=== PATIENT | female | born 1935 | race Caucasian/White ===

== ENCOUNTER → 2018-07-15 08:39 | Outpatient (CLI) | payer MEDICARE, OTHER, SELFPAY ==
--- NOTE | 2018-07-15 | DI.MRI.S_ITS ---
PROCEDURE: MR HEAD/BRAIN WO/W CON INDICATIONS: MEMORY LOSS POSTMENOPAUSAL ESTROGEN DEFICIENCY TECHNIQUE: Noncontrast axial T1 spin echo, axial T2 fast spin echo, sagittal and axial FLAIR, coronal T2 fast spin echo, axial gradient echo, axial diffusion and ADC through the brain. After the administration of contrast, axial and coronal T1 spin echo with fat saturation through the brain. COMPARISON: None. FINDINGS: Image quality: Excellent. CSF spaces: Basal cisterns are patent. No extra-axial fluid collections. Ventricles are normal in size and shape. Brain: No midline shift. No intracranial bleeds or masses. No abnormal intracranial enhancement. There is moderate cerebral volume loss for age. There is extensive periventricular white matter chronic small vessel ischemic change. The brainstem appears normal. Diffusion-weighted images demonstrate no acute ischemic insults. There are multiple foci of susceptibility artifacts bilaterally, right greater than left. Normal intravascular flow voids are present. Skull and face: Calvarial marrow is normal in signal. Orbits appear normal. Sinuses: Sinuses and mastoids appear clear. IMPRESSION: 1. No acute intracranial abnormalities. 2. Moderate cerebral volume loss and severe chronic microvascular ischemic changes. 3. Multiple foci of susceptibility artifacts bilaterally, suggesting hemosiderin deposition. The finding may be secondary to amyloid angiopathy. Dictated by: Odalis Warren M.D. on 07/15/2018 at 10:49 Approved by: Odalis Warren M.D. on 07/15/2018 at 17:48
== END ==
PROVIDERS: PCP Nurse Practitioner Family; Visit Provider Nurse Practitioner Family
DX: R41.3 Other amnesia (principal); M81.0 Age-related osteoporosis without current pathological fracture; Z78.0 Asymptomatic menopausal state; E28.39 Other primary ovarian failure
CPT/HCPCS: 70553; 77080; A9579

== ENCOUNTER 2019-11-02 14:56 | Observation (INO) | payer MEDICARE, OTHER, SELFPAY ==
[2019-11-02] VITALS (19 sets, daily range): BP systolic 152–203; BP diastolic 72–101; PULSE 85–152; RESP 16–54; TEMP 36.4–36.9; O2SAT 85–100; BMI 20.1
--- NOTE | 2019-11-02 15:07 | ED.DIZZY ---
HPI - Dizziness General Chief Complaint: Dizziness Stated Complaint: states vestibular neuritis Time Seen by Provider: 11/02/19 15:00 Source: patient and family Mode of arrival: Wheelchair Limitations: no limitations History of Present Illness HPI Narrative: 84-year-old female nonsmoker presents with her for evaluation dizziness with any motion or change in position for the past few days. She has had a few episodes of nausea and vomiting. She denies any focal findings such as blurred vision, trouble speech or extremity numbness, tingling or weakness. She has had no recent injury. She had recently been treated with Keflex for urinary tract infection but stopped when she started becoming dizzy. 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 She states that her right ear felt funny and like there was liquid in it. She denies recent flights, diving, or swimming. She is now significantly week and states she's had a poor appetite. MD complaint: dizziness Onset (ago): day(s) Timing: unsure Description: sense of movement History of similar episodes: No History of trauma: No Severity: moderate Relieving factors: remaining still Exacerbating factors: movement and position Associated symptoms: weakness, nausea and vomiting Related Data Home Medications Medication Instructions Recorded Confirmed CALCIUM CITRATE/VITAMIN D3 2 tab PO BID #0 05/07/12 (Calcitrate + Vit D Caplet) cholecalciferol (vitamin D3) 2,000 unit PO QDAY #0 05/07/12 [Vitamin D3] telmisartan [Micardis] 10 mg PO Q DAY #0 05/07/12 [HOMEOPATHIC SUPPLEME] Q DAY #0 03/14/16 [CO-Q-10] 100 mg Q DAY #0 05/01/16 [COD LIVER OIL] #0 05/01/16 [SUPER K] 1,200 mcg Q DAY #0 05/01/16 ascorbic acid (vitamin C) 1,000 mg PO QDAY #0 05/01/16 multivitamin [Multiple Vitamins] 1 tab PO QDAY #0 05/01/16 zinc acetate [Galzin] 25 mg PO Q DAY #0 05/01/16 Previous Rx's Medication Instructions Recorded atorvastatin [Lipitor] 40 mg PO HS #90 tab 05/01/16 venlafaxine [Effexor XR] 75 mg PO QDAY #90 cap 10/04/16 Allergies Allergy/AdvReac Type Severity Reaction Status Date / Time niacin [NIACIN] Allergy Intermediate NAUSEA, Verified 11/02/19 17:13 ELEVATED LIVER ENZYMES pseudoephedrine Allergy Mild HIVES Verified 11/02/19 17:13 [PSEUDOEPHEDRINE] Sulfa (Sulfonamide Allergy Unknown RASH - Verified 11/02/19 17:13 Antibiotics) UNKNOWN [SULFA (SULFONAMIDE SEVERITY ANTIBIOTICS)] PER PT Review of Systems Constitutional Constitutional: Denies chills, Denies fatigue, Denies fever(s), Denies frequent falls, Denies lethargy and Denies weakness Eyes Eyes: Denies change in vision, Denies eye discharge, Denies irritation and Denies loss of vision Comments: nystagmus ENT Ears, Nose, Mouth, and Throat: Denies change in voice, Reports dizziness, Denies neck pain, Denies sore throat and Denies throat swelling Cardiovascular Cardiovascular: Denies chest pain, Denies irregular heart rhythm, Denies lightheadedness, Denies palpitations, Denies dyspnea, Denies dyspnea on exertion and Denies orthopnea Respiratory Respiratory: Denies cough, Denies dyspnea, Denies dyspnea on exertion and Denies wheezing Gastrointestinal Gastrointestinal: Denies abdominal pain, Denies change in bowel habits, Denies diarrhea, Denies nausea and Denies vomiting Musculoskeletal Musculoskeletal: Denies neck pain and Denies numbness Integumentary/Breasts Skin/Breast: Denies pruritus, Denies erythema, Denies rash and Denies wounds Neurologic Neurologic: Denies behavioral changes, Denies confusion, Reports dizziness, Denies frequent falls, Denies loss of vision, Denies numbness and Denies weakness Psychiatric Psychiatric: Denies anxiety, Denies behavioral changes, Denies confusion, Denies depression, Denies homicidal ideation and Denies suicidal ideation Endocrine Endocrine: Denies fatigue, Denies flushing and Denies palpitations Hematologic/Lymphatic Hematologic/Lymphatic: Denies easy bruising Allergic/Immunologic Allergic/Immunologic: Denies urticaria, Denies throat swelling and Denies wheezing Patient History Surgical History History of hip replacement History of tonsillectomy Status post delivery Status post hysterectomy Family History Father Heart disease Mother Mental health problem Social History Smoking Status: Never smoker Smoking Status: Never smoker alcohol intake frequency: 0-2 drinks per day Substance Use Type: does not use Exam Narrative Exam Narrative: GENERAL: [84] year old patient appears stated age. Well-nourished, well-developed patient, in mild distress. HEAD: Atraumatic. Normocephalic. EYES: Pupils equal round and reactive. Extraocular motions intact, however horizontal nystagmus with fast twitch to the right is noted. No scleral icterus. No injection or drainage. ENT: Nose without bleeding, purulent drainage. Throat without erythema, tonsillar hypertrophy or exudate. Airway patent. NECK: Trachea midline. Non tender CARDIOVASCULAR: Regular rate and rhythm without murmurs, gallops, or rubs. RESPIRATORY: Clear to auscultation. Breath sounds equal bilaterally. No wheezes, rales, or rhonchi. GASTROINTESTINAL: Abdomen soft, non-tender, nondistended. EXTREMITIES: No edema or joint tenderness. BACK: Nontender without deformity or crepitance. No flank tenderness. NEURO: AOx3. SKIN: No rash or erythema of visible areas Initial Vital Signs Initial Vital Signs: Vital Signs Pulse Rate 111 H 11/02/19 15:15 Respiratory Rate 24 11/02/19 15:15 Blood Pressure 180/86 H 11/02/19 15:15 Pulse Oximetry 99 11/02/19 15:15 Scores NIH Stroke Scale Level of Conciousness: Alert, keenly responsive Ask month/age: Answers both questions correctly. Open/close eyes, close hand: Performs both tasks correctly Best gaze horizontal: Normal Visual abernathy: No visual loss Facial palsy: Normal symetrical movement Left arm drift: No drift for full 10 sec Right arm drift: No drift for full 10 sec Left leg drift: No drift for full 5 sec Right leg drift: No drift for full 5 sec Limb ataxia: Absent Sensory on face/arms/legs: Normal, no sensory loss Best language: No aphasia, normal Dysarthria: Normal Extinction or inattention: No abnormality Total NIH Stroke scale score: 0 Course Course Course Narrative: Head impulse test: Loss of fixation with corrective saccade when head turned to the [right] Nystagmus: unidirectional, horizontal with fast twitch to the Right Skew Deviation: grossly absent portions of her exam and story are certainly consistent with a peripheral vertigo however her double vision, trouble with swallowing, and history of at least two prior TIA make it difficult to consider her safe for discharge. Orders Ordered: ED Orders 11/02/19 15:20 Basic Metabolic Panel Stat Complete Blood Count AUTO DIFF Stat Urine Microscopic Stat 11/02/19 15:30 EKG-12 Lead Stat 11/02/19 16:22 CT head/brain wo con Stat 11/02/19 17:18 COVID19 -ED/INPAT/OR/L&D Stat Discontinued Medications Aspirin (Aspirin Chew) 324 mg PO NOW ONE Stop: 11/02/19 16:59 Last Admin: 11/02/19 17:23 Dose: 324 mg Documented by: ADIEL Sodium Chloride (Normal Saline 0.9%) 1,000 mls @ 1,000 mls/hr IV BOLUS ONE Stop: 11/02/19 16:16 Last Infusion: 11/02/19 17:13 Dose: 0 mls/hr Documented by: Admin: 11/02/19 15:44 Dose: 1,000 mls/hr Documented by: JIGAR Meclizine HCl (Antivert) 50 mg PO NOW ONE Stop: 11/02/19 15:18 Last Admin: 11/02/19 15:21 Dose: 50 mg Documented by: JIGAR Reevaluation(s) Reevaluation #1: patient given meclizine, and while consuming has brief choking spell and HR jumps to 155. Repeat EKG ordered, but she had settled down to 106 again by the time of it's completion. Vital Signs Vital signs: Vital Signs - 8 hr 11/02/19 15:15 11/02/19 15:20 11/02/19 15:24 Temperature 98.4 F Pulse Rate 111 H 152 H 122 H Respiratory Rate 24 24 20 Blood Pressure 180/86 H 180/86 H Pulse Oximetry 99 99 11/02/19 15:30 11/02/19 15:33 11/02/19 15:34 Temperature Pulse Rate 134 H 110 H 107 H Respiratory Rate 39 H Blood Pressure 203/101 H 171/77 H Pulse Oximetry 95 95 11/02/19 15:45 11/02/19 16:00 11/02/19 16:15 Temperature Pulse Rate 96 H 98 H 103 H Respiratory Rate 20 38 H 27 H Blood Pressure 165/79 H 157/76 H 171/83 H Pulse Oximetry 99 99 98 11/02/19 16:46 11/02/19 16:47 11/02/19 17:00 Temperature Pulse Rate 98 H 98 H 91 H Respiratory Rate 23 18 40 H Blood Pressure 179/94 H Pulse Oximetry 97 97 99 11/02/19 17:01 11/02/19 17:15 Temperature Pulse Rate 93 H 85 Respiratory Rate 42 H 54 H Blood Pressure 152/72 H 160/74 H Pulse Oximetry 99 100 MDM - Dizziness Lab Data Result diagrams: 11/02/19 15:20 11/02/19 15:20 Labs: Lab Results 11/02/19 11/02/19 11/02/19 Range/Units 15:20 15:20 15:20 WBC 9.6 (4.5-11.0) X10^3/uL RBC 4.79 (4.0-5.2) X10^6/uL Hgb 13.9 (12.0-16.0) g/dL Hct 42.3 (36-46) % MCV 88.3 (80-100) fL MCH 29.1 (26-34) PG MCHC 32.9 (30-36) % RDW 14.0 (11.6-14.8) % Plt Count 178 (150-400) X10^3/uL Neut % (Auto) 83.4 H (50-75) % Lymph % (Auto) 12.3 L (25-40) % Mcculloch % (Auto) 3.7 (3-14) % Eos % (Auto) 0.1 L (2-4) % Baso % (Auto) 0.5 (0-2) % Neut # (Auto) 8000 H (9329-8403) /uL Lymph # (Auto) 1200 (7500-7015) /uL Mcculloch # (Auto) 400 (0-900) /uL Eos # (Auto) 0 (0-450) /uL Baso # (Auto) 100 (0-100) /uL Sodium 140 (137-145) mmol/L Potassium 3.9 (3.4-5.1) mmol/L Chloride 103 (98-107) mmol/L Carbon Dioxide 29 (22-32) mmol/L BUN 14 (7-17) mg/dL Creatinine 0.40 L (0.52-1.04) mg/dL Estimated GFR > 60.0 (>60) mL/min BUN/Creatinine Ratio 35.0 H (6-22) Glucose 121 H (80-110) mg/dL Calcium 10.0 (8.4-10.2) mg/dL Urine RBC 1-5/hpf (0-5/HPF) Urine WBC 0-1/hpf (0-5/HPF) Ur Squamous Epith Cells 1-5 /hpf (0-5/HPF) Amorphous Sediment 1+ Urine Bacteria None seen (None) Ur Culture Indicated? Cult not indicated COVID-19 PCR (Negative) 11/02/19 Range/Units 17:18 WBC (4.5-11.0) X10^3/uL RBC (4.0-5.2) X10^6/uL Hgb (12.0-16.0) g/dL Hct (36-46) % MCV (80-100) fL MCH (26-34) PG MCHC (30-36) % RDW (11.6-14.8) % Plt Count (150-400) X10^3/uL Neut % (Auto) (50-75) % Lymph % (Auto) (25-40) % Mcculloch % (Auto) (3-14) % Eos % (Auto) (2-4) % Baso % (Auto) (0-2) % Neut # (Auto) (3715-7592) /uL Lymph # (Auto) (6324-0021) /uL Mcculloch # (Auto) (0-900) /uL Eos # (Auto) (0-450) /uL Baso # (Auto) (0-100) /uL Sodium (137-145) mmol/L Potassium (3.4-5.1) mmol/L Chloride (98-107) mmol/L Carbon Dioxide (22-32) mmol/L BUN (7-17) mg/dL Creatinine (0.52-1.04) mg/dL Estimated GFR (>60) mL/min BUN/Creatinine Ratio (6-22) Glucose (80-110) mg/dL Calcium (8.4-10.2) mg/dL Urine RBC (0-5/HPF) Urine WBC (0-5/HPF) Ur Squamous Epith Cells (0-5/HPF) Amorphous Sediment Urine Bacteria (None) Ur Culture Indicated? COVID-19 PCR Negative (Negative) Urine Dip Bedside Urine Glucose Negative Bedside Urine Bilirubin - Negative Bedside Urine Ketone +++ 80 Urine Specific Jelm 1.030 Bedside Urine Occult Blood +/- Bedside Urine pH 6.0 Bedside Urine Protein +/- 15 Bedside Urine Urobilinogen - Negative Bedside Urine Nitrite - Negative Bedside Urine Leukocytes - Negative Esterase Imaging Data CT scan - head: Radiologist's Impression: [address] [address] [address] Scan Report Signed Patient: Tod Posey KMR#: [id number] : 7Acct:[id number] Age/Sex: 84 / FDate of Service: 11/02/19 Loc: ED Accession Number: [id number] Procedure: CT head/brain wo con Ordering Provider: Leonardo Goddard D.O. PROCEDURE: CT HEAD/BRAIN WO CON INDICATIONS: dizzy, blurred vision TECHNIQUE: Noncontrast 4.5 mm thick angled axial sections acquired from the foramen magnum to the vertex, with coronal and sagittal reformats. For radiation dose reduction, the following was used: automated exposure control, adjustment of mA and/or kV according to patient size. COMPARISON: [facility], MR, MR HEAD/BRAIN WO/W CON, 07/15/2018, 9:24. FINDINGS: Image quality: Excellent. CSF spaces: Basal cisterns are patent. No extra-axial fluid collections. The ventricles are symmetric in size and shape. Brain: No intracranial bleeds or masses. There is cerebral volume loss for age, with resultant ventricular and sulcal prominence. There are periventricular and deep white matter chronic small vessel ischemic changes. There is intracranial internal carotid artery atherosclerosis. Skull and face: Calvarium and visualized facial bones appear intact, without suspicious lesions. There is a right superior posterior scalp lesion seen, as on series 4, image 33, which is similar to the prior MRI. Sinuses: Visualized sinuses and mastoids are clear. An apparent impacted tooth can be seen along the posterior aspect of the left maxillary sinus. IMPRESSION: No definite intracranial abnormality is seen for age, with note made of brain parenchymal volume loss and chronic small vessel ischemic change. Note is made of age-appropriate brain parenchymal volume loss and chronic small vessel ischemic changes. 1 cm posterior superior scalp lesion, which is similar to the prior. Please correlate with physical examination findings. Dictated by: Devendra Carrillo M.D. on 11/02/2019 at 15:57 Approved by: Devendra Carrillo M.D. on 11/02/2019 at 15:59 ECG Data Interpretation: EKG is sinus tachycardia, rate 106, regular rhythm and free of any signs of ischemia or ectopy. No ST segmental elevation or depression. No T wave inversions Discharge Plan Departure Patient Disposition: Admitted as Observation Clinical Impression: Brain TIA Referrals: Geneva Hearn ARNP [Primary Care Provider] - Admit Date/Time: 11/02/19 17:39 Admit Provider: Polo Balderas
[2019-11-02] MEDS: MECLIZINE HCL 12.5 MG TABLET 50 MG PO (15:21)
[2019-11-02 15:34] LABS: Add Manual Diff / Slide Review NO; Bacteria Urine None Seen; Basophils Absolute Auto 100 /uL (0-100); Basophils Percent Auto 0.5 % (0-2); Eosinophils Absolute Auto 0 /uL (0-450); Eosinophils Percent Auto 0.1 % (2-4); Hematocrit 42.3 % (36-46); Hemoglobin 13.9 g/dL (12.0-16.0); Lymphocytes Absolute Auto 1200 /uL (1100-4500); Lymphocytes Percent Auto 12.3 % (25-40); Mean Corpuscular HGB Conc 32.9 % (30-36); Mean Corpuscular Hemoglobin 29.1 PG (26-34); Mean Corpuscular Volume 88.3 fL (80-100); Monocytes Absolute Auto 400 /uL (0-900); Monocytes Percent Auto 3.7 % (3-14); Neutrophils Absolute Auto 8000 /uL (1500-7000); Neutrophils Percent Auto 83.4 % (50-75); Platelet Count 178 X10^3/uL (150-400); Red Blood Cell Count 4.79 X10^6/uL (4.0-5.2); White Blood Cell Count 9.6 X10^3/uL (4.5-11.0)
[2019-11-02 15:43] LABS: Amorphous Sediment Urine 1+; Culture Indicated Urine Cult Not Indicated; RBC Urine 1-5/HPF (0-5/HPF); Squamous Epithelial Cell Urine 1-5 /HPF (0-5/HPF); WBC Urine 0-1/HPF (0-5/HPF)
[2019-11-02 15:44] LABS: Blood Urea Nitrogen 14 mg/dL (7-17); Carbon Dioxide 29 mmol/L (22-32); Chloride 103 mmol/L (98-107); Estimated Glomerular Filt Rate > 60.0 mL/min (>60); Glucose 121 mg/dL (80-110); HEMOLYSIS < 15 (0-50); Potassium 3.9 mmol/L (3.4-5.1); Sodium 140 mmol/L (137-145)
[2019-11-02] MEDS: SODIUM CHLORIDE 0.9% 1,000 ML 1000 ML IV (15:44)
--- NOTE | 2019-11-02 16:22 | DI.CT.S_ITS ---
PROCEDURE: CT HEAD/BRAIN WO CON INDICATIONS: dizzy, blurred vision TECHNIQUE: Noncontrast 4.5 mm thick angled axial sections acquired from the foramen magnum to the vertex, with coronal and sagittal reformats. For radiation dose reduction, the following was used: automated exposure control, adjustment of mA and/or kV according to patient size. COMPARISON: [facility], MR, MR HEAD/BRAIN WO/W CON, 07/15/2018, 9:24. FINDINGS: Image quality: Excellent. CSF spaces: Basal cisterns are patent. No extra-axial fluid collections. The ventricles are symmetric in size and shape. Brain: No intracranial bleeds or masses. There is cerebral volume loss for age, with resultant ventricular and sulcal prominence. There are periventricular and deep white matter chronic small vessel ischemic changes. There is intracranial internal carotid artery atherosclerosis. Skull and face: Calvarium and visualized facial bones appear intact, without suspicious lesions. There is a right superior posterior scalp lesion seen, as on series 4, image 33, which is similar to the prior MRI. Sinuses: Visualized sinuses and mastoids are clear. An apparent impacted tooth can be seen along the posterior aspect of the left maxillary sinus. IMPRESSION: No definite intracranial abnormality is seen for age, with note made of brain parenchymal volume loss and chronic small vessel ischemic change. Note is made of age-appropriate brain parenchymal volume loss and chronic small vessel ischemic changes. 1 cm posterior superior scalp lesion, which is similar to the prior. Please correlate with physical examination findings. Dictated by: Devendra Carrillo M.D. on 11/02/2019 at 15:57 Approved by: Devendra Carrillo M.D. on 11/02/2019 at 15:59
[2019-11-02] MEDS: ASPIRIN 81 MG CHEW TAB 324 MG PO (17:23)
[2019-11-02 17:55] LABS: COVID19 -Nasal RAPID Negative (Negative)
--- NOTE | 2019-11-02 20:41 | P.HP_ITS ---
History of Present Illness History of Present Illness Date Patient Seen: 11/02/19 Time Patient Seen: 20:00 Chief complaint: states vestibular neuritis Narrative: Filiberto Posey Is an 84-year-old female resident of [place] who presented with a 2-3 day history of dizziness and dehydration. 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 She was seen by an oral surgeon who removed a small portion of the upper and lower tongue border and told her that he did not remove all the borders. She has since been referred to a Dr. Castillo Head and Neck surgery ([phone]) at [facility] for consultation to do a Mohs procedure on her tongue. The patient states that prior to having the surgery she her tongue was quite painful and she has not been eating or drinking much due to the pain. 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 She does endorse having a headache, nausea as well as vomiting and frequent urination, She denies shortness of breath, denies chest pain, diarrhea or constipation. She denies a history of diabetes in her immediate family, but had a grandparent who was diabetic. She currently has diagnosis is of hypertension, hyperlipidemia and anxiety. In the ED, CT was negative for any acute intercranial process, they did report a impacted tooth. Patient is afebrile, blood pressure 169/87, heart rate 85, respiratory rate 16, is a pain level of 5, oxygen saturation 99% on room air, she weighs 49.8 kg with a BMI of 20.1. CBC is within normal limits, she has a platelet count of 178 however for some reason her chart is flagged with being thrombocytopenic, chemistries largely within normal limits, glucose 121 with an A1c of 6.3%, urinalysis is negative for UTI and she is COVID-19 negative. Patient History Medical History (Updated 11/02/19 @ 21:02 by JESSA Llamas) Essential hypertension (Chronic 12/28/15) History of thrombocytopenia (Acute) Hyperlipidemia (Chronic) Surgical History History of hip replacement History of tonsillectomy Status post delivery Status post hysterectomy Family & Social History Family History Father Heart disease Mother Mental health problem Social History: household members spouse Prior Living Arrangements House Safety & Behavioral: Been Physically Hurt or No Threatened By a Person Suicidal Ideation Description None Suicide Plan Description No Plan Tobacco & Substance use: Smoking Status Never smoker alcohol intake frequency 0-2 drinks per day Substance Use Type does not use Meds Home Medications and Allergies Home Medications Medication Instructions Recorded Confirmed Type CALCIUM CITRATE/VITAMIN D3 2 tab PO BID #0 05/07/12 History (Calcitrate + Vit D Caplet) cholecalciferol (vitamin D3) 2,000 mcg PO DAILY #0 05/07/12 11/02/19 History [Vitamin D3] telmisartan [Micardis] 10 mg PO Q DAY #0 05/07/12 11/02/19 History [HOMEOPATHIC SUPPLEME] Q DAY #0 03/14/16 History Galzin 25 mg PO Q DAY #0 05/01/16 History [CO-Q-10] 100 mg PO BID #0 05/01/16 11/02/19 History [COD LIVER OIL] 1 tsp PO DAILY #0 05/01/16 11/02/19 History [SUPER K] 2,600 mcg PO DAILY #0 05/01/16 11/02/19 History ascorbic acid (vitamin C) 1,000 mg PO QDAY #0 05/01/16 11/02/19 History multivitamin [Multiple Vitamins] 1 tab PO BID #0 05/01/16 11/02/19 History venlafaxine [Effexor XR] 75 mg PO QDAY #90 cap 10/04/16 11/02/19 Rx acetylcarnitine 500 mg PO DAILY 11/02/19 11/02/19 History alendronate 70 mg PO WEEKLY 11/02/19 11/02/19 History aspirin 81 mg PO DAILY 11/02/19 11/02/19 History atorvastatin 30 mg PO BEDTIME 11/02/19 11/02/19 History bromelains 500 mg PO BID 11/02/19 11/02/19 History calcium carbonate 500 mg PO BID 11/02/19 11/02/19 History lycopene 15 mg PO BID 11/02/19 11/02/19 History magnesium oxide 250 mg PO BID 11/02/19 11/02/19 History Allergies Allergy/AdvReac Type Severity Reaction Status Date / Time niacin [NIACIN] Allergy Intermediate NAUSEA, Verified 11/02/19 17:13 ELEVATED LIVER ENZYMES pseudoephedrine Allergy Mild HIVES Verified 11/02/19 17:13 [PSEUDOEPHEDRINE] Sulfa (Sulfonamide Allergy Unknown RASH - Verified 11/02/19 17:13 Antibiotics) UNKNOWN [SULFA (SULFONAMIDE SEVERITY ANTIBIOTICS)] PER PT Review of Systems Review of Systems ROS: Yes All systems reviewed with the patient and are negative except as otherwise documented Exam Vital Signs (past 8 hours): - 11/02/19 15:15 11/02/19 15:20 11/02/19 15:24 Temperature 98.4 F Pulse Rate 111 H 152 H 122 H Respiratory Rate 24 24 20 Blood Pressure 180/86 H 180/86 H Pulse Oximetry 99 99 11/02/19 15:30 11/02/19 15:33 11/02/19 15:34 Temperature Pulse Rate 134 H 110 H 107 H Respiratory Rate 39 H Blood Pressure 203/101 H 171/77 H Pulse Oximetry 95 95 11/02/19 15:45 11/02/19 16:00 11/02/19 16:15 Temperature Pulse Rate 96 H 98 H 103 H Respiratory Rate 20 38 H 27 H Blood Pressure 165/79 H 157/76 H 171/83 H Pulse Oximetry 99 99 98 11/02/19 16:46 11/02/19 16:47 11/02/19 17:00 Temperature Pulse Rate 98 H 98 H 91 H Respiratory Rate 23 18 40 H Blood Pressure 179/94 H Pulse Oximetry 97 97 99 11/02/19 17:01 11/02/19 17:15 11/02/19 17:30 Temperature Pulse Rate 93 H 85 99 H Respiratory Rate 42 H 54 H 32 H Blood Pressure 152/72 H 160/74 H 170/86 H Pulse Oximetry 99 100 99 11/02/19 17:45 11/02/19 18:00 11/02/19 18:01 Temperature Pulse Rate 95 H 92 H 94 H Respiratory Rate 32 H 29 H Blood Pressure 168/84 H 171/81 H Pulse Oximetry 99 85 L 96 11/02/19 18:15 Temperature 97.5 F L Pulse Rate 85 Respiratory Rate 16 Blood Pressure 169/87 H Pulse Oximetry 99 Oxygen Delivery Method Room Air Oxygen Flow Rate 0 Narrative Exam Narrative: Gen: Alert, oriented, thin 84 y.o. female, NAD HEENT: normocephalic, atraumatic, conjunctiva clear, sclera non-icteric, has a pale white lesion on the left upper and lower tongue border, oral mucosa pink, but dry Neck: supple, full ROM, no JVD, trachea is midline Resp: Lungs CTA, non-labored breathing CV: RRR, no murmur or rubs Abd: soft, non-tender, normoactive BTs Skin: no lesions or rashes, dry and intact Neuro: Alert and oriented X 4 w/no focal deficits. Speech with a slight lisp, but coherent. Extremities: moves all 4 extremities, is ambulatory, negative Collette?s sign Psyche: normal mood and affect. Objective Labs Result Diagrams: 11/02/19 15:20 11/02/19 15:20 Labs: Laboratory Results - last 24 hr 11/02/19 11/02/19 11/02/19 15:20 15:20 15:20 WBC 9.6 RBC 4.79 Hgb 13.9 Hct 42.3 MCV 88.3 MCH 29.1 MCHC 32.9 RDW 14.0 Plt Count 178 Neut % (Auto) 83.4 H Lymph % (Auto) 12.3 L [place] % (Auto) 3.7 Eos % (Auto) 0.1 L Baso % (Auto) 0.5 Neut # (Auto) 8000 H Lymph # (Auto) 1200 [place] # (Auto) 400 Eos # (Auto) 0 Baso # (Auto) 100 Sodium 140 Potassium 3.9 Chloride 103 Carbon Dioxide 29 BUN 14 Creatinine 0.40 L Estimated GFR > 60.0 BUN/Creatinine Ratio 35.0 H Glucose 121 H Calcium 10.0 Urine RBC 1-5/hpf Urine WBC 0-1/hpf Ur Squamous Epith Cells 1-5 /hpf Amorphous Sediment 1+ Urine Bacteria None seen Ur Culture Indicated? Cult not indicated COVID-19 PCR 11/02/19 17:18 WBC RBC Hgb Hct MCV MCH MCHC RDW Plt Count Neut % (Auto) Lymph % (Auto) [place] % (Auto) Eos % (Auto) Baso % (Auto) Neut # (Auto) Lymph # (Auto) [place] # (Auto) Eos # (Auto) Baso # (Auto) Sodium Potassium Chloride Carbon Dioxide BUN Creatinine Estimated GFR BUN/Creatinine Ratio Glucose Calcium Urine RBC Urine WBC Ur Squamous Epith Cells Amorphous Sediment Urine Bacteria Ur Culture Indicated? COVID-19 PCR Negative Assessment & Plan Assessment & Plan narrative: Filiberto Posey will be observed overnight for further evaluation of a TIA vs nystagmous associated with an acute vestibular neuritis. Visual nystagmous, acute, present on admission -DDx includes TIA given reported history of a CVA -MRI of the head/stroke and echo on 11/02. -Speech and swallow eval, may be confounded with current disorder of her tongue -PT/OT -tele Essential hypertension, not well controlled, present on admission -Normally takes micardis, which will be continued -pending results of echo and cardiac monitoring, may add a beta-francine Hyperlipidemia, chronic -fasting lipid panel in the am -Atorvastatin increased from 30 mg to 40 mg po at bedtime New dx of diabetes type 2 with an A1c of 6.3 -will intiate [facility] glucose checks -diabetic education, suspect she will be diet controlled Tongue cancer/lesion -She was referred to Dr. Xavier Castillo [facility] for a Mohs procedure and was to go in for consultation tomorrow -This appears to mildly affect her speech History of thrombocytopenia, appears to be resolved History of CVA in 2016 -Requested records from her PCP VTE prophylaxis: Wells risk score: 1 Enoxaparin 30 mg subQ daily Consults: none Patient is observation status as her stay is not likely to exceed 2 midnights. FEN: NS at 75 ml/hour X 1 liter ,vegan heart healthy diet, BMP and magnesium in the am. Dispo: unknown at this time Code Status: Full code as discussed with patient Scores Otis' Criteria for PE Clinical signs and symptoms of DVT: No PE is #1 Dx or equally likely: No Heart rate > 100: No Immobilization at least 3 days or surg in previous 4 weeks: No History of PE or DVT: No Hemoptysis: No Malignancy w/Treatment within 6 months or palliative: Yes Wells' PE Score total: 1
[2019-11-02 20:49] LABS: Hemoglobin A1C% w Est Avg Glu 6.3 % (4.0-6.0)
[2019-11-02] MEDS: ATORVASTATIN 20 MG TABLET 40 MG PO (21:11)
[2019-11-02] MEDS: SODIUM CHLORIDE 0.9% 1,000 ML 75 ML IV (22:25)
[2019-11-03 00:45] VITALS: BP 144/87; PULSE 85; RESP 16; TEMP 36.7; O2SAT 97
[2019-11-03 05:31] VITALS: BP 159/70; PULSE 98; RESP 16; TEMP 37.1; O2SAT 97
[2019-11-03 06:27] LABS: Add Manual Diff / Slide Review NO; Basophils Absolute Auto 0 /uL (0-100); Basophils Percent Auto 0.3 % (0-2); Eosinophils Absolute Auto 0 /uL (0-450); Eosinophils Percent Auto 0.6 % (2-4); Hematocrit 36.5 % (36-46); Hemoglobin 12.2 g/dL (12.0-16.0); Lymphocytes Absolute Auto 1900 /uL (1100-4500); Lymphocytes Percent Auto 24.2 % (25-40); Mean Corpuscular HGB Conc 33.5 % (30-36); Mean Corpuscular Hemoglobin 29.4 PG (26-34); Mean Corpuscular Volume 87.8 fL (80-100); Monocytes Absolute Auto 700 /uL (0-900); Monocytes Percent Auto 8.4 % (3-14); Neutrophils Absolute Auto 5300 /uL (1500-7000); Neutrophils Percent Auto 66.5 % (50-75); Platelet Count 154 X10^3/uL (150-400); Red Blood Cell Count 4.16 X10^6/uL (4.0-5.2); Red Cell Distribution Width 13.6 % (11.6-14.8)
[2019-11-03 06:35] LABS: BUN Creatinine Ratio 31.4 (6-22); Blood Urea Nitrogen 11 mg/dL (7-17); Calcium 8.9 mg/dL (8.4-10.2); Carbon Dioxide 27 mmol/L (22-32); Chloride 105 mmol/L (98-107); Cholesterol 150 mg/dL (140-199); Estimated Glomerular Filt Rate > 60.0 mL/min (>60); Glucose 89 mg/dL (80-110); HDL Cholesterol 48 mg/dL (40-60); HEMOLYSIS < 15 (0-50); LDL Cholesterol Calculated 87 mg/dL (<100); Potassium 3.3 mmol/L (3.4-5.1); Sodium 138 mmol/L (137-145); Triglycerides 73 mg/dL (35-150)
[2019-11-03 08:00] VITALS: BP 138/75; PULSE 90; RESP 15; TEMP 36.4; O2SAT 97
--- NOTE | 2019-11-03 08:26 | DI.MRI.S_ITS ---
PROCEDURE: MR STROKE Pre- and post-contrast brain MRI, non-contrast brain MR angiogram, pre- and postcontrast neck MR angiogram INDICATIONS: Nystagmous TECHNIQUE: Brain: Noncontrast axial T1 spin echo, axial T2 fast spin echo, sagittal and axial FLAIR, coronal T2 fast spin echo, axial gradient echo, axial diffusion and ADC through the brain. After the administration of contrast, axial 3D VIBE of the cranial vasculature and brain. Brain MRA: Non-contrast 3-D time of flight MR angiogram, with multiple aotzcbo-ymkmihlkd-zvcixzgeit (MIP) reformats performed. Neck MRA: Axial and sagittal TruFISP through the neck. Coronal dynamic MR angiogram during administration of contrast in the arterial and venous phases, with 3-dimenstional lgneerw-npjjhiudh-vijzketdqy (MIP) reformats constructed from subtraction images. COMPARISON: None. FINDINGS: Image quality: Excellent. BRAIN: CSF spaces: Ventricles are normal in size and shape. Basal cisterns are patent. No extra-axial fluid collections. Brain: No intracranial bleeds or mass effects. Calderon-white matter interface is normal. Diffusion weighted images show no acute ischemic insults. Brainstem appears normal. Normal intravascular flow voids are present. No abnormal intracranial enhancement. There are scattered areas of blooming artifact seen on the gradient echo pulse sequence suggestive of chronic calcifications or blood products. Skull and face: Calvarial marrow signal is normal. Orbits appear normal. Sinuses: Sinuses and mastoids are clear. BRAIN MR ANGIOGRAM: Anterior circulation: Intracranial internal carotid arteries are normal in size and enhancement. The right A1 segment is not seen. The left A1 segment supplies both anterior cerebral arteries. The flow within the paired anterior cerebral arteries is normal and symmetric. There is mild asymmetric decreased flow seen within the distal right M1 segment although no definite occlusion identified on the source images. No stenoses, occlusions, or aneurysms. Posterior circulation: Dominant right vertebral artery is seen. The distal left V4 segment is atretic/absent Basilar artery appears within normal limits. The flow within the posterior cerebral arteries is normal and symmetric. No stenoses, occlusions, or aneurysms. NECK MR ANGIOGRAM: Carotids: Great vessels demonstrate a conventional anatomy as they arise from the aortic arch. The origins of the common carotid arteries appear patent. The calibers and courses of both common carotid arteries are normal. Mild 20% narrowing of the proximal right ICA. The left ICA appears grossly patent Posterior circulation: The origins of the vertebral arteries appear patent. More superior portions of both vertebral arteries demonstrate normal course and caliber, and join to form a normal appearing basilar artery. Miscellaneous: Subclavian arteries appear patent. Pre-contrast images through the neck show no soft tissue abnormalities. IMPRESSION: BRAIN MRI: No evidence of acute ischemia. Scattered chronic microcalcifications/blood products seen on the gradient echo pulse sequence, non-specific etiology. Diffuse small white matter changes, probably represent chronic microvascular ischemic disease, versus statistically less likely demyelination or other infectious, inflammatory, neurodegenerative etiology, technically nonspecific. BRAIN MR ANGIOGRAM: No definite focal stenosis or occlusion. Possible slight asymmetric decreased flow in the distal right M1 segment. NECK MR ANGIOGRAM: No hemodynamically significant ICA stenosis identified. Dictated by: Jose Castellon M.D. on 11/03/2019 at 11:48 Approved by: Jose Castellon M.D. on 11/03/2019 at 12:04
[2019-11-03] MEDS: ONDANSETRON 4 MG/2 ML INJ IV (08:48)
[2019-11-03] MEDS: ASPIRIN EC 81 MG TABLET PO (08:48)
[2019-11-03] MEDS: VENLAFAXINE ER 75 MG CAP PO (08:49)
[2019-11-03] MEDS: TELMISARTAN 20 MG TABLET 10 MG PO (08:50)
[2019-11-03] MEDS: ENOXAPARIN 30 MG/0.3 ML SYRINGE SUBCUT (08:57)
[2019-11-03] MEDS: ACETAMINOPHEN 325 MG TABLET 650 MG PO (09:00)
--- NOTE | 2019-11-03 10:38 | PC.NURSE ---
Day shift: Pt off unit for MRI at approx 1035. Off tele also for MRI.
--- NOTE | 2019-11-03 11:39 | PT.IIE ---
Surgical History (Last Reviewed 11/02/19 @ 15:57 by Leonardo Goddard DO) History of hip replacement History of tonsillectomy Status post delivery Status post hysterectomy Medical History (Last Updated 11/03/19 @ 06:43 by JESSA Llamas) Essential hypertension (Chronic 12/28/15) History of stroke (12/28/15) History of thrombocytopenia (Acute) Hyperlipidemia (Chronic) Physical Therapy Inpatient Evaluation/Re-Eval M1 PT/OT-IP Prior Functional Status Start: 11/03/19 08:59 Freq: NEEDED Status: Active Protocol: Document 11/03/19 10:59 AW (Rec: 11/03/19 11:38 AW [email or web address]) Medical Review Prior Functional Status Medical History Reviewed Yes Communication Pt is being treated for 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 Speech content is appropriate. Pt has mild difficulty with s sounds due to recent tongue surgery. Mobility and Gait Pt is typically independent with all mobilty without AD and without meaningful limit. She admits being unsteady on uneven terrain at baseline. Activities of Daily Living and IADL's Independent with all I/ADL's Social History Household Members spouse Living Arrangements House Number of Floors (Floors) One Floor Number of Stairs To Enter/Railing? 3 JOSSIE with right rail ascending. Home Environment High Toilet,Walk in Shower Home Equipment Straight Cane,Shower Seat without Backrest,Grab Bars In Shower Employment Status Retired Additional Social History Comment Pt lives with her spouse, Foster, on [address]. She has a son, Jaxson, who is a PT and lives in [place]. In addition to equipment listed above, pt has and occasionally uses bilateral trekking poles for uneven terrain. M2 PT-IP Current Condition Start: 11/03/19 08:59 Freq: NEEDED Status: Active Protocol: Document 11/03/19 10:59 AW (Rec: 11/03/19 11:38 AW [email or web address]) Physical Therapy Current Condition Current Condition Evaluation Date 11/03/19 Treatment Diagnosis dizziness, TIA vs vestibular neuritis, impaired balance, difficulty walking Onset Date a few days ago M3 PT-IP Subjective Start: 11/03/19 08:59 Freq: NEEDED Status: Active Protocol: Document 11/03/19 10:59 AW (Rec: 11/03/19 11:38 AW [email or web address]) Subjective Physical Therapy Visit Type Type Initial Evaluation Visit Start Time 09:36 Visit Stop Time 10:26 Total Visit Minutes 50 Physical Therapy Visit Comments Patient Comments When the dizziness comes, it' s like a wave or a sinking feeling. Patient Goals Pt would like to reduce dizziness and return to regular activity Therapy Pain Assessment Pain When Pain Assessed At Rest Pain Present Pain Present Pain Reported Location Occipital Intensity 3 Scale Used occipital and frontal Pain Management Techniques Apply Cold,Modification of Treatment M4 PT-IP Mobility and Gait Start: 11/03/19 08:59 Freq: NEEDED Status: Active Protocol: Document 11/03/19 10:59 AW (Rec: 11/03/19 11:38 AW [email or web address]) PT-Bed Mobility Assessment Supine to Sit Supine to Sit Minimal Assistance,1 Person Assistance Scooting Scooting to Edge of Bed Standby Assistance PT-Transfer Assessment Sit to and From Stand Sit to and from Stand Contact Guard Assistance,1 Person Assistance Equipment Transfer Assistive Device None,Gait Belt,Front Wheeled Walker Orthotic/Prosthetic Devices or Brace: No Transfers Transfer Destination Chair,Toilet,Wheelchair Transfer Technique pt ambulated with and w/o FWW Transfer Ability Level of Assist Standby Assistance,Contact Guard Assistance Comments Mobility Comments Pt was reclined in the bed as PT arrived with room darkened due to 3/10 headache pain. Pt experiences one wave of dizziness lasting <2 minutes while talking to therapist. Pt agreed to mobilize and completed supine to sit from flat bed with min A x 1 for assist to sit up due to fear of dizziness. Pt reported dizzy spell during occulomotor assessment which abated within a minute. Pt stood from the bed with unsteadiness, reaching for therapist's arm to steady herself. She ambulated around the room and into the rayo for a total of 50 feet without AD, requiring CGA/ANIMAL TRAINER SUPERVISOR due to unsteadiness and incoordination. Pt returned to the room and transferred to the chair CGA. MRI transport arrived to notify pt of imminent departure. Pt requested to use the toilet before leaving. Using FWW, pt ambulated to the toilet, transferred to and from, and ambulated to the wheelchair using FWW SBA. Steadiness was improved with use of FWW. Pt was positioned on the wheelchair with call light in reach while awaiting transport. Gait Assessment Gait Gait Assistance Required: Standby Assistance,Contact Guard Assist Distance (Feet) 50 Assistive Devices Assistive Device None,Gait Belt,Front Wheeled Walker Orthotic/Prosthetic Devices or Brace: No Gait Deviations General Gait Pattern Ataxic,Decreased Stride Length ,Decreased Feet Clearance, Flexed Trunk,Lateral Trunk Lean,Wide Based Gait Factors Limiting Gait Function Factors Limiting Gait Function Decreased Activity Tolerance, Incoordination,Pain,Poor Balance,Poor Safety Awareness Comments Gait Comments Pt ambulated in the room and briefly in the rayo for a total of 50 feet without AD, requiring CGA. Pt reached frequently for furniture and railing in the hallway. Lateral lean in ipsilateral stance was significant. Gait in the room with FWW showed improved stability and required only SBA. Discussed recommendation for FWW with pt who states she will be able to procure one from a [employer] program on [address]. Stair Climbing Assessment Comments Stair Climbing Comments Not assessed. PT-Balance Assessment Sitting Balance and Reactions Static Sitting Balance Ability Good Dynamic Sitting Balance Ability Good Standing Balance and Reactions Static Standing Balance Ability Fair Dynamic Standing Balance Ability Poor Balance Tests Single Limb Standing 1 sec BLE Romberg assist to get in position Tandem Standing unable M5 PT-IP Objective Assessments Start: 11/03/19 08:59 Freq: NEEDED Status: Active Protocol: Document 11/03/19 10:59 AW (Rec: 11/03/19 11:38 AW [email or web address]) Orientation Orientation/Cognition Level of Alertness Alert Orientation Name Language Function Ability No Deficits Noted Safety Awareness Understands Safety Issues Memory Description No Deficits Noted Gross Range of Motion Upper Extremity ROM Assessment Within Functional Limits Lower Extremity ROM Assessment Within Functional Limits Strength Upper Extremity Strength Assessment Within Functional Limits Lower Extremity Strength Assessment Within Functional Limits Comments Strength Comments No unilateral deficit on exam Coordination Assessment Gross Coordination Gross Coordination Impaired Assessment Finger to Nose Test Normal Performance Coordination Comments No deficits in BLE on exam, but coordination functionally in gait is poor. Sensation Assessment Sensation Gross Sensation WNL Muscle Tone Muscle Tone WNL Yes Comments Muscle Tone Comments Negative clonus at bilateral ankles Other Assessments Other Other Assessments Smooth pursuits and saccades are abnormal on occulomotor exam. Positive right-beating nystagmus at rest and gaze- evoked. VOR is impaired on head thrust. Symptoms are not consistent with BPPV so pt was not assessed with Josefa Rayo Hagerman position. M6 PT-IP Treatment Start: 11/03/19 08:59 Freq: NEEDED Status: Active Protocol: Document 11/03/19 10:59 AW (Rec: 11/03/19 11:38 AW [email or web address]) Physical Therapy Treatment Education Education Provided Precautions,Safety Other Treatments Other Treatment Performed Provided simple gaze stabilization exercise for pt with horizontal and vertical head turns. M7 PT-IP Assessment and Plan Start: 11/03/19 08:59 Freq: NEEDED Status: Active Protocol: Document 11/03/19 10:59 AW (Rec: 11/03/19 11:38 AW [email or web address]) PT Summary Assessment and Plan Potential Rehabilitation Potential Good Status of Condition at Evaluation Evolving Summary Impairments Pain,Balance,Coordination,Bed Mobility,Transfers,Gait Assessment Summary Filiberto is an 84 yo woman with recent history of oral surgery for tongue cancer and recent UTI (pt did not finish course of antibiotics). She was admitted with complaints of dizziness, double vision, headache, and nausea/vomiting. At baseline, pt is independent in all regards. On evaluation, pt has impaired smooth pursuits, abnormal saccades, right beating nystagmus (resting and gaze- evoked), and impaired vestibulo-occular reflex which are contributing to unsteady, poorly-coordinated gait. MRI is pending at time of evaluation. Pt's steadiness is improved with use of FWW. PT discussed recommendation of FWW with pt who agrees and states she can borrow one from an equipment loan program on [address]. Pt will likely be safe to discharge to home with assist for mobility, use of FWW as needed, and referral to outpatient vestibular PT. Goals Bed Mobility Goal Independent Transfer Goal Independent Gait Goal Independent,Front Wheel Walker Gait Distance 200 Other Goals - improve gait to 200 feet without AD IND - up/down 3 steps with R rail IND Frequency of Treatment Frequency Of Treatment Once a Day Treatment Plan Physical Therapy Treatment Plan Bed Mobility Training,Transfer Training,Gait Training, Therapeutic Exercise,Balance Retraining,Discharge Planning, Hot or Cold Pack,Neuromuscular Re-ed,Coordination Retraining Other Recommendations and Next Treatment gaze stability, gait training, Focus balance activities Recommendations To Nursing Amount of Assist Needed 1 Person Assist Discharge Recommendations PT Discharge Recommendations Home with Assistance, Outpatient PT Other Discharge Recommendations vestibular PT Transportation Needs at Discharge Private Vehicle
[2019-11-03 11:46] VITALS: BP 127/76; PULSE 96; RESP 16; TEMP 36.8; O2SAT 97
--- NOTE | 2019-11-03 13:29 | PM.DS.1 ---
History of Present Illness History of Present Illness Date Patient Seen: 11/03/19 Time Patient Seen: 13:29 Chief complaint: states vestibular neuritis Narrative: Filiberto Posey Is an 84-year-old female resident of [place] who presented with a 2-3 day history of dizziness and dehydration. 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 She was seen by an oral surgeon who removed a small portion of the upper and lower tongue border and told her that he did not remove all the borders. She has since been referred to a Dr. Castillo Head and Neck surgery ([phone]) at [facility] for consultation to do a Mohs procedure on her tongue. The patient states that prior to having the surgery she her tongue was quite painful and she has not been eating or drinking much due to the pain. 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 She does endorse having a headache, nausea as well as vomiting and frequent urination, She denies shortness of breath, denies chest pain, diarrhea or constipation. She denies a history of diabetes in her immediate family, but had a grandparent who was diabetic. She currently has diagnosis is of hypertension, hyperlipidemia and anxiety. In the ED, CT was negative for any acute intercranial process, they did report a impacted tooth. Patient is afebrile, blood pressure 169/87, heart rate 85, respiratory rate 16, is a pain level of 5, oxygen saturation 99% on room air, she weighs 49.8 kg with a BMI of 20.1. CBC is within normal limits, she has a platelet count of 178 however for some reason her chart is flagged with being thrombocytopenic, chemistries largely within normal limits, glucose 121 with an A1c of 6.3%, urinalysis is negative for UTI and she is COVID-19 negative. Discharge Providers Provider Date of admission: 11/02/19 17:39 Discharge Date: 11/03/19 Primary care physician: JESSA Davis Consults: 11/02/19 20:31 Consult to Occupational Therapy Evaluate & Treat Comment: Physician Instructions: Evaluate and treat Consult to Physical Therapy Evaluate & Treat Comment: Physician Instructions: Evaluate and Treat Consult to Speech Therapy Evaluate & Treat Comment: Recent tongue surgery, may affect swallow eval Physician Instructions: Evaluate and treat Discharge provider: Polo Balderas DO Summary Hospital Course Discharge Diagnosis: vestibular neuritis, acute, present on admission Essential hypertension, not well controlled, present on admission Hyperlipidemia, chronic prediabetes Tongue cancer/lesion, stable History of thrombocytopenia History of CVA in 2016 Hospital Course: This is an 84 year old female with a PMH of prior CVA who presented with dizziness with minimal positional change. She underwent an MRI which did not show any acute infarcts the following morning given some atypical exam findings noted by ER provider and history of CVA with concern for TIA vs CVA. Her symptoms improved the following morning. Seen by PT whom recommended outpatient rehab. Initial signs and symptoms consistent with vestibular neuritis. She was discharged on a steroid taper and recommend outpatient PT and possible vestibular rehab as an outpatient if available as she resides on one of the [facility]. Exam Vital Signs (past 8 hours): - 11/03/19 05:31 11/03/19 08:00 11/03/19 11:46 Temperature 98.7 F 97.6 F 98.2 F Pulse Rate 98 H 90 96 H Respiratory Rate 16 15 16 Blood Pressure 159/70 H 138/75 127/76 Pulse Oximetry 97 97 97 Oxygen Delivery Method Room Air Oxygen Flow Rate 0 Narrative Exam Narrative: Gen: Alert, oriented, thin 84 y.o. female, NAD HEENT: normocephalic, atraumatic, conjunctiva clear, sclera non-icteric, has a pale white lesion on the left upper and lower tongue border. Neck: supple, full ROM, no JVD, trachea is midline Resp: Lungs CTA, non-labored breathing CV: RRR, no murmur or rubs Abd: soft, non-tender, normoactive BTs Skin: no lesions or rashes, dry and intact Neuro: Alert and oriented X 4 w/no focal deficits. Speech with a slight lisp, but coherent. Minimal horizontal nystagmus. Extremities: moves all 4 extremities, is ambulatory, negative Collette?s sign Psyche: normal mood and affect. Objective Labs Result Diagrams: 11/03/19 05:50 11/03/19 05:50 Labs: Laboratory Results - last 24 hr 11/02/19 11/02/19 11/02/19 15:20 15:20 15:20 WBC 9.6 RBC 4.79 Hgb 13.9 Hct 42.3 MCV 88.3 MCH 29.1 MCHC 32.9 RDW 14.0 Plt Count 178 Neut % (Auto) 83.4 H Lymph % (Auto) 12.3 L [place] % (Auto) 3.7 Eos % (Auto) 0.1 L Baso % (Auto) 0.5 Neut # (Auto) 8000 H Lymph # (Auto) 1200 [place] # (Auto) 400 Eos # (Auto) 0 Baso # (Auto) 100 Sodium 140 Potassium 3.9 Chloride 103 Carbon Dioxide 29 BUN 14 Creatinine 0.40 L Estimated GFR > 60.0 BUN/Creatinine Ratio 35.0 H Glucose 121 H Hemoglobin A1c Calcium 10.0 Magnesium Triglycerides Cholesterol LDL Cholesterol, Calc HDL Cholesterol TSH Urine RBC 1-5/hpf Urine WBC 0-1/hpf Ur Squamous Epith Cells 1-5 /hpf Amorphous Sediment 1+ Urine Bacteria None seen Ur Culture Indicated? Cult not indicated COVID-19 PCR 11/02/19 11/02/19 11/03/19 15:20 17:18 05:50 WBC 8.0 RBC 4.16 Hgb 12.2 Hct 36.5 MCV 87.8 MCH 29.4 MCHC 33.5 RDW 13.6 Plt Count 154 Neut % (Auto) 66.5 Lymph % (Auto) 24.2 L [place] % (Auto) 8.4 Eos % (Auto) 0.6 L Baso % (Auto) 0.3 Neut # (Auto) 5300 Lymph # (Auto) 1900 [place] # (Auto) 700 Eos # (Auto) 0 Baso # (Auto) 0 Sodium Potassium Chloride Carbon Dioxide BUN Creatinine Estimated GFR BUN/Creatinine Ratio Glucose Hemoglobin A1c 6.3 H Calcium Magnesium Triglycerides Cholesterol LDL Cholesterol, Calc HDL Cholesterol TSH Urine RBC Urine WBC Ur Squamous Epith Cells Amorphous Sediment Urine Bacteria Ur Culture Indicated? COVID-19 PCR Negative 11/03/19 11/03/19 05:50 05:50 WBC RBC Hgb Hct MCV MCH MCHC RDW Plt Count Neut % (Auto) Lymph % (Auto) [place] % (Auto) Eos % (Auto) Baso % (Auto) Neut # (Auto) Lymph # (Auto) [place] # (Auto) Eos # (Auto) Baso # (Auto) Sodium 138 Potassium 3.3 L Chloride 105 Carbon Dioxide 27 BUN 11 Creatinine 0.35 L Estimated GFR > 60.0 BUN/Creatinine Ratio 31.4 H Glucose 89 Hemoglobin A1c Calcium 8.9 Magnesium 2.0 Triglycerides 73 Cholesterol 150 LDL Cholesterol, Calc 87 HDL Cholesterol 48 TSH 0.810 Urine RBC Urine WBC Ur Squamous Epith Cells Amorphous Sediment Urine Bacteria Ur Culture Indicated? COVID-19 PCR Discharge Plan Discharge Plan Patient Disposition: Home Discharge comment: You were admitted to the hospital with dizziness and possible vestibular neuritis. You should get better with steroids. You should obtain a referral from your PMD for continued outpatient PT and if possible vestibular rehab. If no improvement please follow up with your PCP for possible referral to a neurologist. Discharge orders & Medications Prescriptions: New prednisone 10 mg tablet See Rx Instructions .ROUTE .COMPLEX Qty: 41 RF: 0 Continued telmisartan [Micardis] 20 MG tablet 10 mg PO Q DAY Qty: 0 RF: 0 CALCIUM CITRATE/VITAMIN D3 (Calcitrate + Vit D Caplet) 2 tab PO BID Qty: 0 RF: 0 cholecalciferol (vitamin D3) [Vitamin D3] 2,000 UNIT capsule 2,000 mcg PO DAILY Qty: 0 RF: 0 [HOMEOPATHIC SUPPLEME] Q DAY Qty: 0 RF: 0 [COD LIVER OIL] 1 tsp PO DAILY Qty: 0 RF: 0 Galzin 25 MG capsule 25 mg PO Q DAY Qty: 0 RF: 0 multivitamin [Multiple Vitamins] 1 EACH tablet 1 tab PO BID Qty: 0 RF: 0 [CO-Q-10] 100 mg PO BID Qty: 0 RF: 0 [SUPER K] 2,600 mcg PO DAILY Qty: 0 RF: 0 ascorbic acid (vitamin C) 500 MG tablet 1,000 mg PO QDAY Qty: 0 RF: 0 venlafaxine [Effexor XR] 75 MG capsule,extended release 24hr 75 mg PO QDAY Qty: 90 RF: 0 alendronate 70 mg tablet 70 mg PO WEEKLY RF: 0 atorvastatin 10 mg tablet 30 mg PO BEDTIME RF: 0 bromelains 500 mg Tablet 500 mg PO BID RF: 0 aspirin 81 mg Tablet,Delayed Release (Dr/Ec) 81 mg PO DAILY RF: 0 calcium carbonate 500 mg calcium (1,250 mg) Tablet 500 mg PO BID RF: 0 magnesium oxide 250 mg magnesium Tablet 250 mg PO BID RF: 0 acetylcarnitine 500 mg Capsule 500 mg PO DAILY RF: 0 lycopene 10 mg Capsule 15 mg PO BID RF: 0 Follow up/Referrals: Geneva Hearn ARNP [Primary Care Provider] - Diet/Activity/Treatments Diet: Diet as Tolerated Activity: As tolerated. Visit Report/Discharge Packet Instructions: How to Prevent Falls, Prednisone Visit Report Forms: Patient Portal/API, Stroke Signs & Symptoms Discharge Data Primary Care Provider: Geneva Hearn Attending Provider: Polo Balderas Admit Date/Time: 11/02/19 17:39 Discharges patient from system. Discharge Date/Time: 11/03/19 13:50
--- NOTE | 2019-11-03 13:33 | CM.DANOTE ---
DCP assessment: EMR Reviewed: Patient is a 84 yr old female who was admitted to the hospital for poss TIA,PCP is Dr Hearn. Patient currently lives on [place] in a single floor house with her spouse hung. Patient PT eval states she is good to go home at D/C with assistance. Patient has Walk in shower, cane and grab bars. Brain MRI pending- I: medicare and Plan: D/C home with to [place] today pending MRI-[place]. No identified D/C planning needs noted. Kika Spangler RN Discharge Planning/Care Management Advanced directive, confirm from FAMILY Start: 11/02/19 18:59 Freq: Q24H Status: Active Protocol: Document 11/02/19 22:24 AKP (Rec: 11/02/19 22:34 AKP [id number]) Co-Signed By Arcelia Lua RN 11/02/19 22:24 Advance Directive, confirm on record Time 22:32 Person contacted patient to ask spouse tomorrow , spouse in hotel in town. Copy received No CM Discharge Assessment Start: 11/03/19 13:30 Freq: Status: Active Protocol: Document 11/03/19 13:30 HS (Rec: 11/03/19 13:33 HS [id number]) Discharge Planning Assessment Assigned Engineering And Development Director Kika Spangler RN DPOA/Assigned Designee Name Maldonado Posey () Contact Information [phone] Advance Directives? Yes History Provided By Patient,Medical Record Has Patient been admitted in last 30 No days? Prior Living Arrangements House Household Members spouse Type of transporation used prior to Relies on Others admit Independent with ADL's Yes Is patient alert and oriented? Yes Caregiver for Another No Comment will need priority boarding to [place]. Barriers to Discharge No Discharge Plan Home Referrals Initiated None needed Whiteboard Updated in Patient Room with Yes name and ext. # of Engineering And Development Director Review Status In Process Next Review Type Continued Stay Review
--- NOTE | 2019-11-03 13:48 | PC.NURSE ---
Day shift: Pt left unit and going home to [place]. Her Foster will be driving her. They were encouraged to get a walker/wheelchair to help w/ Pt's stability and for safety. Paperwork signed and all questions answered. Paperwork was gone over with Pt by JOHANNY Razo. Pt has all personal belongings. scripts sent electronic.
--- NOTE | 2019-11-03 15:53 | ST.IPCSEOM ---
Visit Care Team Role Provider Type JESSA Davis Primary Care Provider Non-Staff Specialty: Medical Address: [address] [place] [address], [id number] Email: Leonardo Goddard DO Emergency Provider Physician Specialty: Emergency Medicine Address: [address] [place] [address], [id number] Email: [email or web address] Polo Balderas DO Admit Provider Physician Attending Provider Specialty: Internal Medicine Address: [address] [place] [address], [id number] Email: [email or web address] Past Medical History (Last Updated 11/03/19 @ 06:43 by JESSA Llamas) Essential hypertension (Chronic Medical 12/28/15) History of stroke (Medical 12/28/15) History of thrombocytopenia (Acute Medical) Hyperlipidemia (Chronic Medical) Speech-Language Pathology Swallow Evaluation BEAD WIRE INSULATOR Clinical Swallow Evaluation Start: 11/03/19 12:34 Freq: Status: Active Protocol: Document 11/03/19 12:34 LL (Rec: 11/03/19 13:10 LL [id number]) Clinical Swallow Evaluation Session Time Visit Start Date 11/03/19 Visit Start Time 09:05 Visit Stop Date 11/03/19 Visit Stop Time 09:25 Total Visit Minutes 20 Referral Referring Provider JESSA Llamas Reason for Referral Recent lingual surgery - possible impact on swallow function (oral phase) Setting Assessment Location Acute Care Visit Type Note Type Initial evaluation Patient Information Identification Type Name,ID Card History Per H&P, Filiberto weir an 84-year-old female resident of [place] who presented with a 2-3 day history of dizziness and dehydration. 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 She was seen by an oral surgeon who removed a small portion of the upper and lower tongue border and told her that he did not remove all the borders. She has since been referred to a Dr. Castillo Head and Neck surgery ([phone]) at [facility] for consultation to do a Mohs procedure on her tongue. The patient states that prior to having the surgery she her tongue was quite painful and she has not been eating or drinking much due to the pain. 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 She does endorse having a headache, nausea as well as vomiting and frequent urination, she denies shortness of breath, denies chest pain, diarrhea or constipation. She denies a history of diabetes in her immediate family, but had a grandparent who was diabetic. She currently has diagnosis is of hypertension, hyperlipidemia and anxiety. Pt reported no swallowing difficulty and/or oral pain since oral surgery (removal of small portion of the upper and lower tongue border). Pt reported that she was scheduled to receive Mohs procedure today but had to cancel due to hospitalization. Subjective Observations Pt seen sitting upright in bed , alert, and oriented x4. Pt reported feeling dizzy, however, agreed to participate in swallow evaluation. Pt provided brief case history and was very pleasant to work with. Reported by Patient Pain Scale Used Dizziness Location Head Comment Oral pain prior to lingual surgery to remove small portion of the upper and lower tongue border. No oral pain reported since surgery. Reported no throat clearing, coughing, choking, pocketing, or difficulty / pain swallowing food, liquid, or medication. Current Diet Regular,Thin liquids Baseline Feeding Method Independent in self-feeding Patient Questionnaire No Objective Assessment Mental Status Alert,Responsive,Cooperative Oral Integrity WFL Dentition Within normal limits Lip Function Mild impairment Observation of Lips at Rest Right sided weakness/Drooping Pucker Right sided weakness/drooping Lip Retraction Right sided weakness/Drooping Alternating Pucker/Lip Retraction Within normal limits Tongue Function Within normal limits Observations of Tongue at Rest Within normal limits Tongue Protrusion Within normal limits Tongue Retraction Within normal limits Tongue Lateralization Within normal limits Jaw Function Within normal limits Hard/Soft Palate Function Within normal limits Nasality Within normal limits Phonation Within normal limits Respiratory Sufficiency Within normal limits Comment Oral motor exam: Minimal right sided labial drooping which may be due to recent lingual surgery. Pt reported no weakness, labial spillage, numbness, or pain on right side. Slow but adequate labial / lingual ROM, strength, and coordination observed. Food and Liquid Trials Position During Assessment Upright (90 degrees) Liquids Trialed Ice chips,Thin Solids Trialed Puree,Mechanical Soft Administration Type Cup single sip,Cup consecutive sips,Straw,Self-feeding Oral Impairment Within normal limits Oral Phase Comments Oral Phase: Appeared WNL. No pocketing or oral residue observed during PO trials of mechanical soft and puree textures. Did not trial regular textures (e.g., cracker) per pt request. Pt avoids hard-textured foods to reduce possible oral pain from recent lingual surgery. Pharyngeal Impairment Within normal limits Pharyngeal Phase Comments Pt presented with no overt s/ sx of aspiration across all consistencies trialed (e.g., thin liquid, mechanical soft, and puree). Comment Per chart review and pt report , increased consumption of food and liquid since lingual surgery, but recent deterioration due to reported dizziness and nystagmus observed by this BEAD WIRE INSULATOR, nursing, pt's , and MD. Endurance impacted by dizziness, nausea, and nystagmus. Findings Swallowing Function Within functional limits Severity of Swallow Impairment Within functional limits Comments Small portions of tongue removed impacting oral swallow phase. Prognosis Good Based on Cognitive status,Family support Comment Pt reported that she prefers eating softer foods to reduce possible oral pain and increase ease of eating/ drinking. Pt's cognition appears intact and reports that she has strong family support (e.g., ). Pt is at an increased risk for inadequate nutrition/hydration due to frequent dizziness, nausea, and nystagmus reducing appetite / oral intake. Impact on Safety and Functioning Risk for inadequate nutrition/ hydration Comments Reduced appetite likely due to oral pain from lingual surgery. Recommendations Instrumental Assessment No Swallowing Treatment No Recommended Solids Mechanical Soft Recommended Liquids Thin Other Recommendations Recommend mechanical soft diet to assist in reducing possible oral pain and increase ease of eating/ drinking. Pt reported that she will be receiving Mohs surgery once discharged from hospital to remove remaining squamous cell carcinoma on tongue. Recommend ST follow-up / re- evaluation if oral phase of swallowing becomes impaired after procedure (e.g., increased pocketing, reduce lingual ROM, strength, coordination, impaired A-P oral transit time). Safety Precautions/Swallowing Remain upright (90 degrees) Recommendations during all oral intake,Small bites and sips when eating, Slow rate; swallow between bites Medication Recommendations As Tolerated Discharge Recommendations Home Education Patient/Caregiver Education Described results of evaluation,Patient expressed understanding of evaluation, Patient expressed understanding of safety precautions,Patient expressed understanding of feeding recommendations
== END 2019-11-03 13:50 | disposition home or self-care (01) ==
LOC: ED 17:37 → AC 17:40
PROVIDERS: Nurse Practitioner Family; Admitting Provider Internal Medicine; Emergency Provider Emergency Medicine; PCP Nurse Practitioner Family; Visit Provider Internal Medicine
DX: R42 Dizziness and giddiness (principal); R11.2 Nausea with vomiting, unspecified; E86.0 Dehydration; I10 Essential (primary) hypertension; E78.5 Hyperlipidemia, unspecified; E11.9 Type 2 diabetes mellitus without complications; K14.8 Other diseases of tongue; F41.9 Anxiety disorder, unspecified; Z11.59 Encounter for screening for other viral diseases
CPT/HCPCS: 36415; 36592; 70450; 70548; 70553; 80048; 80061; 81003; 81015; 82962; 83036; 83735; 84443; 85025; 87635; 92610; 93005; 93010; 96361; 96372; 96374; 97162; 97530; 99284; G0378; J1650; J2405

== ENCOUNTER → 2022-12-12 09:42 | Outpatient (CLI) | payer MEDICARE, OTHER, SELFPAY ==
[2019-11-02 18:44] VITALS: BMI 20.1
--- NOTE | 2022-12-12 09:50 | DI.RAD.S_ITS ---
Bone Density Report Name: CHARITO CONTRERAS Age: 87 Sex: Female Ethnicity: White Date of : 1935 Indication: postmenopausal osteoporosis; prior fracture; Referring Provider: LAUREN MOLINA Study: Bone densitometry was performed. Exam Date: December 12, 2022 Accession number: [id number] Bone Density: Region BMD T-score Z-score Classification Femoral Neck (Left) 0.520 -3.0 -0.4 Osteoporosis Total Hip (Left) 0.573 -3.0 -0.7 Osteoporosis Total Forearm (Left) 0.317 -4.8 Osteoporosis 1/3 Forearm (Left) 0.405 -4.8 Osteoporosis UD Forearm (Left) 0.214 -4.0 Osteoporosis World Health Organization criteria for BMD impression classify patients as: Normal (T-score at or above -1.0), Osteopenia (T-score between -1.0 and -2.5), or Osteoporosis (T-score at or below -2.5). 10-year Fracture Risk: FRAX not reported because: Some T-score for Spine Total or Hip Total or Femoral Neck at or below -2.5 Prior hip or vertebral fracture Previous Exams: -- Region Exam Age BMD T-score BMD Change BMD Change Date g/cm2 vs Baseline vs Previous -- Total Hip(Left) 12/12/2022 87 0.573 -3.0 0.064 (12.6%)# 0.064 (12.6%)# 07/15/2018 83 0.509 -3.5 -- *Denotes significance at 95% confidence level, LSC for Total Hip = 0.027 g/cm2 # Denotes dissimilar scan types or analysis methods Impression: The patient has established osteoporosis, based on the Left Total Hip T-score and the existence of a prior fracture. The patient has risk factors, including: previous fracture. No significant bone loss was observed. Discussion: HIGH RISK OF FRACTURE. BONE DENSITY IS UNDESIRABLY LOW AT ONE OR MORE SKELETAL SITES, CONSISTENT WITH POSTMENOPAUSAL OSTEOPOROSIS. This patient's lowest T-score, in a patient who has previously fractured, meets the World Health Organization's (WHO) criteria for severe osteoporosis. In untreated patients, the risk of osteoporotic fracture increases approximately two-fold for each 1.0 SD decrease in T-score. Low bone density is not the only risk factor for fracture; also consider factors such as patient's age, frailty or poor health, risk of falling, risk of injury, previous osteoporotic fracture, family history of osteoporosis, cigarette smoking, low body weight, etc. Not everyone with low bone mineral density has osteoporosis; osteomalacia and other metabolic bone disorders should also be considered. Patients who have osteoporosis should be evaluated for specific diseases and conditions (secondary causes) that may cause or contribute to bone loss. The [place] Association of Clinical Endocrinologists (AACE) and National Osteoporosis Foundation (NOF) recommend pharmacologic intervention for all postmenopausal women with a previous hip or vertebral fracture and a T-score in this range. The patient should follow a healthful lifestyle (good nutrition with adequate calcium and vitamin D, and appropriate weight-bearing exercise). Follow-Up: Consider a repeat BMD and Vertebral Fracture Assessment (VFA) exam in 2 years or sooner if medically necessary, to reassess this patient's status. Reported by: GREGORIO MARCELINO MD on 12/12/2022 10:18:00 AM.
== END ==
PROVIDERS: PCP Nurse Practitioner Family; Referring Provider Nurse Practitioner Family; Visit Provider Nurse Practitioner Family
DX: M81.0 Age-related osteoporosis without current pathological fracture (principal)
CPT/HCPCS: 77080; 77081

== ENCOUNTER 2024-12-03 17:16 | Emergency (ER) | payer MEDICARE, OTHER, SELFPAY ==
[2019-11-02 18:44] VITALS: BMI 20.1
[2024-12-03] VITALS (25 sets, daily range): BP systolic 161–200; BP diastolic 74–98; PULSE 79–93; RESP 13–34; TEMP 36.3; O2SAT 95–99; BMI 18.8
--- NOTE | 2024-12-03 17:22 | DI.RAD.S_ITS ---
PROCEDURE: XR SHOULDER LT MIN 2V INDICATIONS: FALL TECHNIQUE: 2 views of the shoulder were acquired. COMPARISON: None. FINDINGS AND IMPRESSION: Mildly displaced and comminuted humeral neck and greater tuberosity fractures. Background glenohumeral and acromioclavicular degenerative changes. Dictated by: Rangel Berman M.D. on 12/03/2024 at 18:21 Approved by: Rangel Berman M.D. on 12/03/2024 at 18:22
--- NOTE | 2024-12-03 18:01 | ED_ITS ---
HPI - Extremity Injury (Upper) General Chief Complaint: Extremity Injury, Upper Stated Complaint: L shoulder dislocation Time Seen by Provider: 12/03/24 17:57 Source: EMS Mode of arrival: EMS History of Present Illness HPI narrative: 81-year-old female with ground level fall and left shoulder pain, no blood thinner medications, denies head strike, denies neck pain, denies headache. No previous left shoulder injuries. Denies pain to face, head, neck, upper mid lower back, chest abdomen and pelvis, lower extremities, left upper extremity. No numbness or weakness to the distal left upper extremity. No pain to distal left upper extremity from mid humerus through fingers. Related Data Home Medications ?Medication ?Instructions ?Recorded ?Confirmed CALCIUM CITRATE/VITAMIN D3 2 tab PO BID ##0 05/07/12 0 11/03/19 (Calcitrate + Vit D Caplet) cholecalciferol (vitamin D3) 50 2,000 mcg PO DAILY ##0 05/07/12 11/02/19 mcg (2,000 unit) capsule (Vitamin D3) telmisartan 20 mg tablet (Micardis) 10 mg PO Q DAY ##0 05/07/12 11/02/19 [HOMEOPATHIC SUPPLEME] Q DAY ##0 03/14/16 [CO-Q-10] 100 mg PO BID ##0 05/01/16 0 11/02/19 [COD LIVER OIL] 1 tsp PO DAILY ##0 05/01/16 11/02/19 [SUPER K] 2,600 mcg PO DAILY ##0 05/0111/02/19 ascorbic acid (vitamin C) 500 mg 1,000 mg PO QDAY ##0 05/01/16 11/02/19 tablet multivitamin (Multiple Vitamins 1 tab PO BID ##0 05/0111/02/19 tablet) zinc acetate 25 mg (zinc) capsule 25 mg PO Q DAY ##0 0 05/01/16 (Galzin) acetylcarnitine 500 mg capsule 500 mg PO DAILY 0 11/02/19 alendronate 70 mg tablet 70 mg PO WEEKLY 11/02/19 aspirin 81 mg tablet,delayed 81 mg PO DAILY 11/02/19 0 11/02/19 release atorvastatin 10 mg tablet 30 mg PO BEDTIME 11/02/19 bromelains 500 mg tablet 500 mg PO BID 11/02/1911/01 calcium carbonate 500 mg PO BID 11/02/1911/01 lycopene 10 mg capsule 15 mg PO BID 11/02/19 magnesium oxide 250 mg PO BID 11/02/1911/01 Previous Rx's ?Medication ?Instructions ?Recorded venlafaxine 75 mg capsule,extended 75 mg PO QDAY #90 c aps 10/04/16 release 24 hr (Effexor XR) prednisone 10 mg tablet See Rx Instructions .Route 0 11/03/19 .COMPLEX #41 tabs hydrocodone 5 mg-acetaminophen 325 1 tab PO Q6H PRN pa in #14 tabs 12/03/24 mg tablet Allergies Allergy/AdvReac Type Severity Reaction Status Date / Time niacin (NIACIN) Allergy Intermediate NAUSEA, Verified 12/03/24 17:24 ELEVATED LIVER ENZYMES pseudoephedrine Allergy Mild HIVES Verified 12/03/24 17:24 (PSEUDOEPHEDRINE) Sulfa (Sulfonamide Allergy Unknown RASH - Verified 12/03/24 17:24 Antibiotics) (SULFA UNKNOWN (SULFONAMIDE ANTIBIOTICS)) SEVERITY PER PT Patient History Medical History (Updated 12/03/24 @ 19:03 by Cristofer Lynn MD) Hyperlipidemia History of thrombocytopenia History of stroke (12/28/15) Essential hypertension (12/28/15) Surgical History History of hip replacement Status post hysterectomy Status post delivery History of tonsillectomy Family History Father Heart disease Mother Mental health problem Social History household members: spouse Smoking Status: Never smoker Smoking Status: Never smoker alcohol intake frequency: 0-2 drinks per day Exam Narrative Exam Narrative: GENERAL: Well-developed patient, in mild distress. HEAD: Atraumatic. Normocephalic. EYES: Pupils equal round and reactive. Extraocular motions intact. No scleral icterus. No injection or drainage. ENT: Nose without bleeding, purulent drainage. Throat without erythema, tonsillar hypertrophy or exudate. Airway patent. NECK: Trachea midline. Non tender CARDIOVASCULAR: Regular rate and rhythm without murmurs, gallops, or rubs. RESPIRATORY: Clear to auscultation. Breath sounds equal bilaterally. No wheezes, rales, or rhonchi. GASTROINTESTINAL: Abdomen soft, non-tender, nondistended. EXTREMITIES: Tenderness left anterior shoulder without anteromedial fullness, no AC step-off. No skin changes or bruising or abrasions or lacerations. Nontender without swelling or deformity changes skin changes to mid upper left arm through fingers. No tenderness along superior left trapezius nor along superior/inferior rhomboids. BACK: Nontender without deformity or crepitance. No flank tenderness. NEURO: AOx3. Motor functions grossly nonfocal. SKIN: No rash or erythema of visible areas Initial Vital Signs Initial Vital Signs: Vital Signs Blood Pressure 183/89 H 12/03/24 17:21 Course Orders Ordered: Discontinued Medications Hydrocodone Bitart/Acetaminophen (Hydrocodone/Acet 5/325 Tablet) 1 tab PO NOW ONE Stop: 12/03/24 17:59 Last Admin: 12/03/24 18:40 Dose: Not Given Documented By: FLAQUITA Hydrocodone Bitart/Acetaminophen (Hydrocodone/Acet 5/325 Prepack) 1 bottle MISC DIRECTED ONE Stop: 12/03/24 19:06 Last Admin: 12/03/24 20:38 Dose: 1 bottle Documented By: Hydromorphone HCl (Hydromorphone Hcl 0.5 Mg/0.5 Ml Syringe) 0.5 mg IV NOW ONE Stop: 12/03/24 18:41 Last Admin: 12/03/24 18:43 Dose: 0.5 mg Documented By: FLAQUITA Vital Signs Vital signs: Vital Signs - 8 hr 12/03/24 17:21 12/03/24 17:22 12/03/24 17:23 Temperature Pulse Rate 80 81 Respiratory Rate 16 15 Blood Pressure 183/89 H Pulse Oximetry 96 96 Oxygen Delivery Method 12/03/24 17:23 12/03/24 17:24 12/03/24 17:30 Temperature 97.4 F L Pulse Rate 79 83 Respiratory Rate 16 17 Blood Pressure 180/85 H 180/85 H Pulse Oximetry 97 98 Oxygen Delivery Method Room Air 12/03/24 17:30 12/03/24 17:40 12/03/24 17:40 Temperature Pulse Rate 82 Respiratory Rate 16 Blood Pressure 176/88 H 190/90 H Pulse Oximetry 97 Oxygen Delivery Method 12/03/24 17:50 12/03/24 17:50 12/03/24 18:00 Temperature Pulse Rate 84 88 Respiratory Rate 16 34 H Blood Pressure 192/90 H Pulse Oximetry 98 97 Oxygen Delivery Method 12/03/24 18:00 Temperature Pulse Rate Respiratory Rate Blood Pressure 200/98 H Pulse Oximetry Oxygen Delivery Method MDM - Extremity Injury (Upper) MDM Narrative Medical decision making narrative: 89-year-old female with ground level fall, left anterior shoulder pain, x-ray shows no dislocation but shows minimally displaced fracture to the left humeral neck. No other injuries evident. 1849, case discussed with Orthopedic surgery Dr. Holliday who will review images and call back. 1899, case discussed again with Dr. Holliday who reviewed x-rays, agrees appears minimally displaced, no other advanced imaging needed now, agrees with sling, no other splinting for now, can follow up in their clinic. Consult placed for [place] [facility], for follow up appointment. Patient informed, to be contacted regarding appointment times. Given contact information for the office of Dr. Polk, to call if no message received in the next couple of days. IV Dilaudid for splinting, we will sent home pack hydrocodone/APAP, prescription also sent to her pharmacy. Follow up with [place] [facility], consult submitted. Tolerated well. Home pack hydrocodone/APAP. Discharged home with family, who will assist with local overnight accommodations awaiting transport back to home [place] tomorrow when [place] services available. Prescription sent for further hydrocodone/APAP to [facility]. Discharge Plan Departure Patient Disposition: Home Clinical Impression: Humerus head fracture Activity Restrictions/Additional Instructions: Fall with left shoulder area pain, no dislocation confirmed on x-ray, but there is a fracture of the humerus upper arm bone, not into the joint. Case was discussed with Orthopedic surgery on-call Dr. Holliday, who was able to review the x-rays, agrees with sling for now, anticipates likely conservative treatment, hopefully no surgery. Further evaluation in their clinic. Consult sent, you should be contacted for specific clinic appointment times. Orthopedic clinic contact information for Dr. Holliday also provided on your discharge, to call if you have not heard from them in the next couple of days. Take pain medication as needed. Return earlier to this/nearest emergency department for any change worsening symptoms or any concerns prior. Prescriptions: New hydrocodone-acetaminophen 5-325 mg tablet 1 tab PO Q6H PRN (Reason: pain) Qty: 14 0RF No Action telmisartan [Micardis] 20 MG tablet 10 mg PO Q DAY Qty: 0 CALCIUM CITRATE/VITAMIN D3 (Calcitrate + Vit D Caplet) 2 tab PO BID Qty: 0 cholecalciferol (vitamin D3) [Vitamin D3] 2,000 UNIT capsule 2,000 mcg PO DAILY Qty: 0 [HOMEOPATHIC SUPPLEME] Q DAY Qty: 0 [COD LIVER OIL] 1 tsp PO DAILY Qty: 0 Galzin 25 MG capsule 25 mg PO Q DAY Qty: 0 multivitamin [Multiple Vitamins] 1 EACH tablet 1 tab PO BID Qty: 0 [CO-Q-10] 100 mg PO BID Qty: 0 [SUPER K] 2,600 mcg PO DAILY Qty: 0 ascorbic acid (vitamin C) 500 MG tablet 1,000 mg PO QDAY Qty: 0 venlafaxine [Effexor XR] 75 MG capsule,extended release 24hr 75 mg PO QDAY Qty: 90 0RF alendronate 70 mg tablet 70 mg PO WEEKLY Patient Comments: ONCE WEEKLY TAKE ONE(1) TAB 1ST THING UPON ARISING AT LEAST 30 MINUTESBEFORE THE FIRST FOOD WITH PLAIN WATER ONLY. DO NOT LIE DOWN FOR AT L Rx Instructions: Sunday Morning (bone strength) atorvastatin 10 mg tablet 30 mg PO BEDTIME Patient Comments: TAKE THREE(3) TABLETS (30 MG TOTAL) BY MOUTH ONCE DAILY. Rx Instructions: after supper bromelains 500 mg Tablet 500 mg PO BID Rx Instructions: between meals (inflammation) aspirin 81 mg Tablet,Delayed Release (Dr/Ec) 81 mg PO DAILY calcium carbonate 500 mg calcium (1,250 mg) Tablet 500 mg PO BID Patient Comments: [place] Rx Instructions: [place] Light supplement in combination w/ magnesium oxide magnesium oxide 250 mg magnesium Tablet 250 mg PO BID Rx Instructions: [place] Light supplement in combination w/ Calcium Carbonate acetylcarnitine 500 mg Capsule 500 mg PO DAILY lycopene 10 mg Capsule 15 mg PO BID prednisone 10 mg tablet See Rx Instructions .ROUTE .COMPLEX Qty: 41 0RF Rx Instructions: 60 mg x5 days, 40 mg x1 day, 30 mg x1 day, 20 x1 day, 10 mg x2 days Referrals: [facility], [employer] [Primary Care Provider, Medical] Consuelo Holliday DO [Physician, Orthopedic Surgery] Stand Alone Forms: Patient Portal/API
--- NOTE | 2024-12-03 18:04 | PC.NURSE ---
patient had a fall today where she fell onto her left shoulder. shoulder is painful to pt. rom of hand intact. shoulder appears deformed but could be related to decreased muscle tone
== END 2024-12-03 21:13 | disposition home or self-care (01) ==
PROVIDERS: Emergency Provider Emergency Medicine; PCP Nurse Practitioner Family
DX: S42.302A Unspecified fracture of shaft of humerus, left arm, initial encounter for closed fracture (principal); W18.30XA Fall on same level, unspecified, initial encounter
CPT/HCPCS: 73060; 96374; 99284; J1171